=== PATIENT | male | born 2000 | race Caucasian/White ===

== ENCOUNTER 2022-03-25 22:18 | Emergency (ER) | payer BC ==
[~2022-03-25 22:18] MED LIST: Iopamidol-370 76% 500 ML 1 ML ONE
[2022-03-25] MEDS ORDERED: Boostrix 0.5 ML (Tdap) VIAL ONE (22:43)
[2022-03-25 22:45] LABS: #Basophils 0.1 thou/uL (0.0-0.2); #Eosinphils 0.1 thou/uL (0.0-0.7); #Lymphocytes 4.1 thou/uL (1.20-3.40); #Monocytes 0.5 thou/uL (0.11-0.59); #Neutrophils 10.1 thou/uL (1.40-6.50); %Basophils 0.6 % (0.0-1.0); %Eosinophils 0.7 % (0.0-10.0); %Lymphocytes 27.3 % (21.0-51.0); %Monocytes 3.6 % (0.0-10.0); %Neutrophils 67.8 % (42.0-75.0); Hemoglobin 16.3 g/dL (14.0-18.0); Mean Corpuscular HGB CONC 33.2 g/dL (32.0-36.0); Mean Corpuscular Hemoglobin 31.7 pg (27.0-31.0); Mean Corpuscular Volume 95.6 fL (78.0-98.0); Mean Platelet Volume 7.5 fL (7.4-10.4); Platelet Count 253 thou/uL (130-400); RBC Distribution Width 11.5 % (11.5-14.5); Red Blood Cell (RBC) Count 5.14 mill/uL (4.70-6.10); White Blood Cell (WBC) Count 14.9 thou/uL (4.8-10.8)
[2022-03-25 23:06] LABS: ALT (SGPT) 22 U/L (8-55); AST (SGOT) 33 U/L (5-34); Albumin 4.9 g/dL (3.5-5.0); Alkaline Phosphatase 49 U/L (40-110); Anion Gap 17 mmol/L (10-20); BUN (Urea Nitrogen) 10 mg/dL (8.9-20.6); Bilirubin, Total 1.5 mg/dL (0.2-1.2); Calc. Creatinine Clearance 0 mL/min (70-130); Calcium 9.5 mg/dL (7.8-10.44); Carbon Dioxide 22 mmol/L (22-29); Chloride 105 mmol/L (98-107); Globulin 2.8 g/dL (2.4-3.5); Glucose 147 mg/dL (70-105); Lipase 18 U/L (8-78); Potassium 3.5 mmol/L (3.5-5.1); Protein, Total 7.7 g/dL (6.0-8.3); Sodium 140 mmol/L (136-145)
[2022-03-25] MEDS ORDERED: Ketamine 50 MG/ML (10ML VIAL) ONE (23:51)
[2022-03-25] MEDS ORDERED: Midazolam HCl 2 mg/2 ml Vial ONE (23:51)
[2022-03-26] MEDS ORDERED: CEFAZOLIN 2 GM VIAL ONE (01:04)
[2022-03-26] MEDS ORDERED: Morphine 4 MG/ML VIAL ONE (01:33)
[2022-03-26] MEDS ORDERED: Ondansetron PF 4 MG/2 ML Vial ONE (01:33)
[2022-03-26] MEDS ORDERED: Xylocaine 1% w/ Epi 1:100K 10 ML VIAL ONE (01:41)
== END 2022-03-26 03:14 | disposition short-term general hospital (02) ==
LOC: ERS 22:18
DX: S27.0XXA Traumatic pneumothorax, initial encounter (principal); S82.842A Displaced bimalleolar fracture of left lower leg, initial encounter for closed fracture; S92.142A Displaced dome fracture of left talus, initial encounter for closed fracture; S22.42XA Multiple fractures of ribs, left side, initial encounter for closed fracture; S66.921A Laceration of unspecified muscle, fascia and tendon at wrist and hand level, right hand, initial encounter; S51.801A Unspecified open wound of right forearm, initial encounter; V86.59XA Driver of other special all-terrain or other off-road motor vehicle injured in nontraffic accident, initial encounter; Z23 Encounter for immunization
CPT/HCPCS: 12001; 27825; 70450; 71045; 71260; 72125; 74177; 80053; 83690; 84484; 85025; 90471; 90715; 96374; 96375; 99156; 99157; J2250; J2270; J2405; Q9967